=== PATIENT | female | born 1980 | race American Indian/Alaskan Native ===

== ENCOUNTER 2021-01-24 22:14 | Emergency (ER) | payer BC ==
[2021-01-24] MEDS ORDERED: diazePAM 10 MG/2 ML SYRINGE IV ONE (22:42)
[2021-01-24] MEDS ORDERED: MECLIZINE 25 MG TAB PO ONE (22:42)
[2021-01-24] MEDS ORDERED: SODIUM CHLORIDE 0.9% 1000 ML 1,000 ML IV ONE (22:42)
--- NOTE | 2021-01-24 22:42 | Emergency Department Report ---
ED Dizziness HPI - General Chief Complaint: Dizziness Stated Complaint: DIZZINESS/UNSTEADY GAIT Time Seen by Provider: 01/24/21 22:26 Source: patient Mode of arrival: Ambulatory Limitations: No Limitations - History of Present Illness Initial Comments: Patient presents with dizziness. Several days ago, she had an episode of dizziness while at work. This was abrupt onset. She felt as though she was off balance. The room was spinning. She had had this before. She was diagnosed with vertigo previously. She states that the symptoms are so bad she had to leave work. She has been self-medicating with steroids, Valium, and meclizine. Today, she did not take the steroids. She was out shopping at [employer]. She had abrupt onset of symptoms. She also had blurry vision associated with this. She decided to come here for evaluation. She denies numbness or tingling in the arm or leg. She had no weakness unilaterally. There was no head trauma. Patient was diagnosed with vestibular neuritis in 2014. She had similar symptoms at that time. She required admission at that time because her symptoms were so severe that she could not walk. - Related Data Previous Rx's Medication Instructions Recorded Last Taken Type Ondansetron [Zofran ODT TAB] 8 mg PO Q8HR PRN #20 tab.rapdis 01/25/21 Unknown Rx Allergies Allergy/AdvReac Type Severity Reaction Status Date / Time No Known Allergies Allergy Unverified 01/24/21 22:20 ED Review of Systems ROS: Stated complaint: DIZZINESS/UNSTEADY GAIT Other details as noted in HPI Comment: All other systems reviewed and negative Constitutional: denies: fever Eyes: as per HPI ENT: denies: hearing loss Respiratory: denies: cough Cardiovascular: denies: chest pain Gastrointestinal: nausea Genitourinary: denies: dysuria Skin: denies: rash Neurological: as per HPI Hematological/Lymphatic: denies: easy bruising ED Past Medical Hx - Past Medical History Previous Medical History?: Yes Additional medical history: vertigo - Surgical History Past Surgical History?: Yes Hx Cholecystectomy: Yes - Family History Family history: other (Negative for MS. Paternal grandmother with stroke) - Social History Smoking Status: Never Smoker Substance Use Type: Alcohol - Medications Home Medications: Home Medications Medication Instructions Recorded Confirmed Last Taken Type Ondansetron [Zofran ODT TAB] 8 mg PO Q8HR PRN #20 tab.rapdis 01/25/21 Unknown Rx ED Physical Exam - General Limitations: No Limitations, Other (Pulse ox is noted and normal) General appearance: alert, in no apparent distress - Head Head exam: Present: atraumatic, normocephalic - Eye Eye exam: Present: normal appearance, EOMI, nystagmus (With left lateral gaze). Absent: scleral icterus - ENT ENT exam: Present: normal exam, normal external ear exam - Neck Neck exam: Present: normal inspection. Absent: meningismus - Respiratory Respiratory exam: Present: normal lung sounds bilaterally. Absent: respiratory distress - Cardiovascular Cardiovascular Exam: Present: regular rate, normal rhythm - GI/Abdominal GI/Abdominal exam: Present: soft. Absent: tenderness - Extremities Exam Extremities exam: Present: normal inspection - Back Exam Back exam: Present: full ROM - Neurological Exam Neurological exam: Present: alert, oriented X3, CN II-XII intact, reflexes normal, other (NIH score was 0. There is no pronator drift or dysdiadochoki nesia.). Absent: motor sensory deficit - Psychiatric Psychiatric exam: Present: normal affect, normal mood - Skin Skin exam: Present: warm, dry ED Course Vital Signs 01/24/21 01/24/21 01/24/21 22:20 22:30 22:36 Temperature 97.5 F L 98.7 F Pulse Rate 80 76 Respiratory 16 10 L 18 Rate Blood Pressure Blood Pressure 145/102 152/111 [Right] O2 Sat by Pulse 99 100 98 Oximetry 01/24/21 01/24/21 01/24/21 22:46 22:50 23:00 Temperature 98.2 F Pulse Rate 73 76 88 Respiratory 14 11 L 20 Rate Blood Pressure 152/111 152/111 152/111 Blood Pressure 139/99 [Right] O2 Sat by Pulse 100 100 98 Oximetry 01/24/21 01/24/21 01/24/21 23:16 23:30 23:46 Temperature Pulse Rate 84 69 73 Respiratory 15 9 L 17 Rate Blood Pressure 139/94 139/94 139/99 Blood Pressure [Right] O2 Sat by Pulse 98 99 100 Oximetry 01/25/21 01/25/21 01/25/21 00:00 00:16 00:30 Temperature Pulse Rate 71 75 76 Respiratory 14 14 14 Rate Blood Pressure 134/88 134/88 134/95 Blood Pressure [Right] O2 Sat by Pulse 100 99 99 Oximetry 01/25/21 00:56 Temperature 98.9 F Pulse Rate 78 Respiratory 18 Rate Blood Pressure Blood Pressure 134/95 [Right] O2 Sat by Pulse 99 Oximetry - Reevaluation(s) Reevaluation #1: 01/24/21 22:38 IV and labs were ordered. Reevaluation #2: 01/24/21 23:22 Teleneurology consult was completed. They agree that this seems to be a peripheral vertigo. Reevaluation #3: 01/25/21 03:29 Teleneurology consult agreed that this was a peripheral vertigo. They had discussed outpatient MRI with the patient. After her work-up, she was discharged. ED Medical Decision Making - Lab Data Result diagrams: 01/24/21 23:02 01/24/21 23:02 Rhythm strip: Normal sinus rhythm without ectopy per monitor observe 10 seconds. - Medical Decision Making Patient presents with abrupt onset of dizziness associated with nausea and vomiting and a spinning sensation. She had peripheral vertigo associate with this. This seems to be consistent with a peripheral vertigo. There is no insidious onset. I do not believe this represents central vertigo. She has a normal NIH. I am not concerned for stroke. There is no trauma that would suggest subdural or epidural hematomas. Patient has been seen by teleneurology and we are in agreement. There is no indication for emergent stroke evaluation. Critical Care Time: No Critical care attestation.: If time is entered above; I have spent that time in minutes in the direct care of this critically ill patient, excluding procedure time. ED Disposition Clinical Impression: Vertigo Disposition: 01 HOME / SELF CARE / HOMELESS Is pt being admited?: No Condition: Stable Instructions: Dizziness Additional Instructions: Continue home medication. Drink any water. Consider MRI as an outpatient. Follow-up with your regular doctor for recheck and further evaluation. Return for any problems or concerns. Return if you develop new symptoms or other concerning problems. Prescriptions: Ondansetron [Zofran ODT TAB] 8 mg PO Q8HR PRN #20 tab.rapdis PRN Reason: Nausea Referrals: PRIMARY MD JESUS [Primary Care Provider] - 3-5 Days JHONY CANCHOLA MD [Staff Physician] - 3-5 Days Forms: Work/School Release Form(ED)
--- NOTE | 2021-01-24 23:12 | Emergency Department Report ---
Blank Doc - Documentation Documentation: [facility] Consult Note # Demographics Consult Type: General Neurology Patient Location: Emergency Room First Name: Rashmi Last Name: Scott Date of : 1980 Age: 40 Gender: Female Facility: [facility] Time of Initial Page (Eastern Time): 01/24/2021, 22:52 Time of Return Call (Eastern Time): 01/24/2021, 22:52 # HPI History: 40yo F presents after having dizziness while at work 4 days ago. treated at home with meds. tonight had worsened symptoms. has lateral gaze nystagmus. in 2014 was admitted with vertigo. diagnosed with vestibular neuritis at that time Monday night she was also feeling off, then Monday at work she had the dizziness starting with the N/V. she reprots having some tinnitus on the days prior to this onset also. she was feeling better until this evening and her symptoms worsened again, but she was still able to walk in the ER. again was having difficulty driving however. # Exam Mental Status: awake alert and oriented x 3 follows commands Language: normal speech Cranial Nerves: normal Motor: no drift Sensory: normal sensation Cerebellar: normal cerebellar exam Additional Neurologic Exam: able to sit unassisted without ataxia # Assessment Impression: Vertigo highly uspicious for peripheral vertigo # Plan Other: I have discussed my recommendations with the referring provider Additional Recommendations: Discussed with pt about suspicion for peripheral cause given her tinnitus prior, age and lack of risk factors, duration and course etc. unable to get an MRI tonight, discussed options for eval and pt does not want admission. She plan to pursuit MRI brain as an outpatient to ensure no other cause # Logistics Telemedicine: Interactive 2 way audio and visual telecommunication technology was utilized during this visit
[2021-01-24 23:38] LABS: Basophils % (Auto) 0.4 % (0.0-1.8); Eosinophils % (Auto) 0.3 % (0.0-4.3); Hematocrit 40.3 % (30.3-42.9); Hemoglobin 13.4 gm/dl (10.1-14.3); Lymphocytes # (Auto) 4.1 K/mm3 (1.2-5.4); Lymphocytes % (Auto) 42.3 % (13.4-35.0); Mean Corpuscular HGB Conc 33 % (30-34); Mean Corpuscular Volume 92 fl (79-97); Monocytes # (Auto) 0.7 K/mm3 (0.0-0.8); Monocytes % (Auto) 7.8 % (0.0-7.3); Platelet Count 219 K/mm3 (140-440); Red Cell Distribution Width 12.9 % (13.2-15.2)
[2021-01-24 23:57] LABS: BUN/Creatinine Ratio 21; Blood Urea Nitrogen 17 mg/dL (7-17); Calcium 9.1 mg/dL (8.4-10.2); Hemolysis Index 32
[2021-01-25 00:50] VITALS: BP 134/95
== END 2021-01-25 00:55 | disposition home or self-care (01) ==
LOC: ED 22:14
DX: R42 Dizziness and giddiness (principal); Z90.89 Acquired absence of other organs
CPT/HCPCS: 36415; 80048; 85025; 96361; 96374; 99283; J3360; J7030